=== PATIENT | female | born 1990 | race Caucasian/White ===

== ENCOUNTER 2018-11-09 15:45 | Inpatient (IN) | payer OTHER ==
[2018-11-09] MEDS ORDERED: CARBOPROST 250 MCG INJ IM (16:30)
[2018-11-09] MEDS ORDERED: LIDOCAINE 1% (MPF) 30 ML INJ INJ (16:30)
[2018-11-09] MEDS ORDERED: METHYLERGONOVINE 0.2 MG INJ IM (16:30)
[2018-11-09] MEDS ORDERED: MISOPROSTOL 200 MCG TAB PR (16:30)
[2018-11-09] MEDS ORDERED: OXYTOCIN 30 UNITS/LR 500 ML IV (16:30)
[2018-11-09 16:43] LABS: ADD MAN DIFF? NO
[2018-11-09 16:46] LABS: WHITE BLOOD COUNT 10.6 10^3/ul (4.8-10.8)
[2018-11-09 16:46] LABS: BASOPHILS % 0.2 % (0.0-2.0); EOSINOPHILS # 0.1 10^3/ul (0.0-0.5); EOSINOPHILS % 0.6 % (0.0-7.0); HEMATOCRIT 30.3 % (37.0-47.0); HEMOGLOBIN 9.4 g/dl (12.0-16.0); LYMPHOCYTES # 1.9 10^3/ul (0.8-2.9); LYMPHOCYTES % 17.9 % (15.0-51.0); MEAN CORPUSCULAR HEMOGLOBIN 23.3 pg (29.0-33.0); MEAN PLATELET VOLUME 11.7 fl (7.4-10.4); MONOCYTE # 0.5 10^3/ul (0.3-0.9); MONOCYTES % 4.3 % (0.0-11.0); NEUTROPHIL # 8.1 10^3/ul (1.6-7.5); NEUTROPHILS % 76.4 % (39.0-77.0); PLATELET COUNT 215 10^3/UL (140-415); RED BLOOD COUNT 4.04 10^6/ul (4.20-5.40)
[2018-11-09] MEDS ORDERED: AMPICILLIN 2 GM/NS (PMX) 100 ML (16:53)
[2018-11-09] MEDS: AMPICILLIN 2 GM/NS (PMX) 100 ML IV (16:59)
[2018-11-09] MEDS: LACTATED RINGER'S 1,000 ML IV (17:00)
[2018-11-09] MEDS ORDERED: BUTORPHANOL 2 MG INJ IV (17:00)
[2018-11-09 17:11] LABS: PROTIME 12.3 Sec (11.9-14.9)
[2018-11-09 17:42] LABS: HEPATITIS B SURFACE ANTIGEN NEGATIVE (NEGATIVE)
[2018-11-09] MEDS: MISOPROSTOL 50 MCG CAPSULE PO ×2 (18:37→23:35)
[2018-11-09] MEDS ORDERED: AMPICILLIN 1 GM/NS (PMX) 50 ML IV (20:30)
[2018-11-09] MEDS: AMPICILLIN 1 GM/NS (PMX) 50 ML IV (21:11)
[2018-11-10] MEDS ORDERED: LIDOCAINE 1.5%/EPI MPF (SDV) 30 ML VIAL
[2018-11-10] MEDS ORDERED: FENTAnyl 2MCG/ML-ROPIV 0.2% 0 ML (00:16)
[2018-11-10] MEDS: LACTATED RINGER'S 1,000 ML IV (00:22)
[2018-11-10] MEDS ORDERED: FENTAnyl 2MCG/ML-ROPIV 0.2% 100 ML BAG EPI (00:30)
[2018-11-10] MEDS ORDERED: ONDANSETRON 4 MG INJ IV (00:30)
[2018-11-10] MEDS ORDERED: NALOXONE (0.4 MG/ML) INJ IV (00:30)
[2018-11-10] MEDS ORDERED: DIPHENHYDRAMINE 50 MG INJ IV (00:30)
[2018-11-10] MEDS: OXYTOCIN 30 UNITS/LR 500 ML IV ×3 (00:38→06:11)
[2018-11-10] MEDS: IBUPROFEN 600 MG TAB PO ×4 (01:07→18:00)
[2018-11-10] MEDS ORDERED: ZOLPIDEM 5 MG TAB PO (03:30)
[2018-11-10] MEDS ORDERED: OXYCODONE/ASPIRIN (4.88/325) TAB PO ×2 (03:30)
[2018-11-10] MEDS ORDERED: METHYLERGONOVINE 0.2 MG INJ IM (03:30)
[2018-11-10] MEDS ORDERED: MISOPROSTOL 200 MCG TAB PR (03:30)
[2018-11-10] MEDS ORDERED: CARBOPROST 250 MCG INJ IM (03:30)
[2018-11-10] MEDS: LANOLIN HPA 1 PKT TOP (03:43)
[2018-11-10] MEDS: BENZOCAINE 20% 56 ML SPRAY TOP (03:43)
[2018-11-10] MEDS: WITCH HAZEL/GLYCERIN PAD PR (03:43)
[2018-11-10] MEDS: SENNA/DOCUSATE NA (8.6MG/50MG) TAB PO ×2 (09:18→21:11)
[2018-11-10 16:58] LABS: RAPID PLASMA REAGIN NONREACTIVE (NR)
[2018-11-11] MEDS: IBUPROFEN 600 MG TAB PO ×3 (06:00→12:23)
[2018-11-11 07:40] LABS: ADD MAN DIFF? NO
[2018-11-11 07:50] LABS: BASOPHILS % 0.3 % (0.0-2.0); EOSINOPHILS # 0.1 10^3/ul (0.0-0.5); EOSINOPHILS % 0.8 % (0.0-7.0); HEMATOCRIT 29.9 % (37.0-47.0); HEMOGLOBIN 9.1 g/dl (12.0-16.0); LYMPHOCYTES # 2.5 10^3/ul (0.8-2.9); LYMPHOCYTES % 24.4 % (15.0-51.0); MEAN CORPUSCULAR HEMOGLOBIN 23.2 pg (29.0-33.0); MEAN CORPUSCULAR HGB CONC 30.4 g/dl (32.0-37.0); MEAN CORPUSCULAR VOLUME 76.1 fl (82.0-101.0); MEAN PLATELET VOLUME 12.2 fl (7.4-10.4); MONOCYTE # 0.7 10^3/ul (0.3-0.9); MONOCYTES % 6.5 % (0.0-11.0); NEUTROPHIL # 6.8 10^3/ul (1.6-7.5); NEUTROPHILS % 67.2 % (39.0-77.0); PLATELET COUNT 168 10^3/UL (140-415); RED BLOOD COUNT 3.93 10^6/ul (4.20-5.40)
[2018-11-11 07:50] LABS: WHITE BLOOD COUNT 10.2 10^3/ul (4.8-10.8)
[2018-11-11] MEDS: SENNA/DOCUSATE NA (8.6MG/50MG) TAB PO (09:00)
[2018-11-12] MEDS ORDERED: DIPHTH/TET/ACEL PERTUSS (ADULT) 0.5 ML VIAL IM* (09:00)
== END 2018-11-11 15:36 | disposition home or self-care (01) | DRG 807 ==
LOC: L-D 15:45 → PP1 11-10 02:52
PROVIDERS: Specialist
PROC: 3E0P7GC Introduction of Other Therapeutic Substance into Female Reproductive, Via Natural or Artificial Opening (ICD-10-PCS; 2018-11-09)
PROC: 4A1HXCZ Monitoring of Products of Conception, Cardiac Rate, External Approach (ICD-10-PCS; 2018-11-09)
PROC: 10E0XZZ Delivery of Products of Conception, External Approach (ICD-10-PCS; principal; 2018-11-10)
PROC: 0HQ9XZZ Repair Perineum Skin, External Approach (ICD-10-PCS; 2018-11-10)
DX: O48.0 Post-term pregnancy (principal); Z37.0 Single live birth; Z3A.41 41 weeks gestation of pregnancy; O99.824 Streptococcus B carrier state complicating childbirth; O70.0 First degree perineal laceration during delivery
CPT/HCPCS: 62322; 76815; 85025; 85610; 85730; 86592; 86850; 86900; 86901; 87340